=== PATIENT | male | born 1960 | race Caucasian/White ===

== ENCOUNTER 2021-04-28 22:52 | Inpatient (IN) | payer OTHER ==
[~2021-04-28] VITALS: Ht 175.3 cm; Wt 113.4 kg
[~2021-04-28 22:52] MED LIST: HYDACE5 PO; ISOMON30 PO
[2021-04-28 23:33] LABS: BASOPHILS ABSOLUTE AUTO 0.04 K/mm3 (0.00-0.23); BASOPHILS PERCENT AUTO 1 % (0-2); EOSINOPHILS ABSOLUTE AUTO 0.12 K/mm3 (0.00-0.68); EOSINOPHILS PERCENT AUTO 2 % (0-6); Hematocrit 20.6 % (37.0-53.0); IMMATURE GRAN ABSOLUTE AUTO 0.03 K/mm3 (0.00-0.10); IMMATURE GRAN PERCENT AUTO 0 % (0-1); LYMPHOCYTES ABSOLUTE AUTO 1.57 K/mm3 (0.84-5.20); LYMPHOCYTES PERCENT AUTO 23 % (21-46); MONOCYTES ABSOLUTE AUTO 0.54 K/mm3 (0.16-1.47); MONOCYTES PERCENT AUTO 8 % (4-13); Mean Corpuscular HGB 41.9 pg (26.0-34.0); Mean Corpuscular Volume 123 fL (80-100); Mean Platelet Volume 11.5 fL (9.1-12.4); NEUTROPHILS ABSOLUTE AUTO 4.59 K/mm3 (1.96-9.15); NEUTROPHILS PERCENT AUTO 67 % (41-73); Platelet Count 134 K/mm3 (150-400); Red Blood Cell Count 1.67 M/mm3 (4.30-5.90); White Blood Cell Count 6.89 K/mm3 (4.00-11.30)
[2021-04-28 23:51] LABS: International Normalized Ratio 1.65; Prothrombin Time Results 17.3 Sec (9.7-11.5)
[2021-04-29 00:55] LABS: Alanine Aminotransfer (ALT/SGP 42 U/L (12-78); Albumin, Blood 2.3 g/dL (3.4-5.0); Albumin/Globulin Ratio 0.8 (0.8-1.8); Alk Phos 91 U/L (50-136); Anion Gap 12 mmol/L (6-16); Aspartate Aminotrans (AST/SGOT 66 U/L (12-37); Blood Urea Nitrogen 31 mg/dL (8-24); Bun/Creatinine Ratio 27.4 (12.0-20.0); CO2, Blood 22 mmol/L (21-32); Calcium, Blood 8.3 mg/dL (8.5-10.1); Chloride, Blood 106 mmol/L (98-108); Creatinine, Blood 1.13 mg/dL (0.60-1.20); Globulin, Blood 2.9 g/dL (2.2-4.0); Glomerular Filtration Rate >60 (60-); Glucose, Blood 154 mg/dL (70-99); Potassium, Blood 4.7 mmol/L (3.5-5.5); Sodium, Blood 140 mmol/L (136-145); Total Protein, Blood 5.2 g/dL (6.4-8.2)
[2021-04-29 01:14] LABS: SARS-Cov-2 (COVID-19) PCR, MMC NEGATIVE (NEGATIVE)
[2021-04-29] MEDS ORDERED: IBUP200 PO (04:20)
--- NOTE | 2021-04-29 05:48 | NUR ---
PATIENT ARRIVED FROM THE ED, ALERT AND BECAME LETHARGIC AFTER AN 1/2 HOUR THROUGH THE ADMISSION, ABLE TO WAKE TO VERBAL STIMULI AND ANSWER QUESTIONS. ADMISSION COMPLETE AND MEDICATIONS RECONCILED, PATIENT STATES ONLY TAKES ADVIL EVERYDAY. URINAL AT BEDSIDE, PATIENT TRIED X 2 UNABLE TO URINATE RECEIVED NEW ORDERS FOR BLADDER SCAN PRN, AND STRAIGHT CATH IF OVER 450ML RESIDUAL. PATIENT CAME ON 2L NC NOW ON RA AT 100%, PRBC STOPPED RUNNING AT 0530 AND LAB INFORMED TO DRAW H/H AND LACTIC AT 0630. PATIENT ORIENTATED TO ROOM, CALL LIGHT, AND EMERGENCY RESPONSE. PATIENT WAS GIVEN SAFETY INSTRUCTIONS AND VERBALIZED THAT HE WONT GET OUT OF BED WITHOUT USING CALL LIGHT AND WAITING FOR SOMEONE.
[2021-04-29 07:00] LABS: BASOPHILS ABSOLUTE AUTO 0.03 K/mm3 (0.00-0.23); BASOPHILS PERCENT AUTO 0 % (0-2); EOSINOPHILS ABSOLUTE AUTO 0.01 K/mm3 (0.00-0.68); EOSINOPHILS PERCENT AUTO 0 % (0-6); Hemoglobin 7.5 g/dL (13.5-17.5); IMMATURE GRAN ABSOLUTE AUTO 0.03 K/mm3 (0.00-0.10); IMMATURE GRAN PERCENT AUTO 0 % (0-1); LYMPHOCYTES ABSOLUTE AUTO 0.97 K/mm3 (0.84-5.20); LYMPHOCYTES PERCENT AUTO 12 % (21-46); MONOCYTES ABSOLUTE AUTO 0.84 K/mm3 (0.16-1.47); MONOCYTES PERCENT AUTO 10 % (4-13); Mean Platelet Volume 11.5 fL (9.1-12.4); NEUTROPHILS ABSOLUTE AUTO 6.41 K/mm3 (1.96-9.15); NEUTROPHILS PERCENT AUTO 77 % (41-73); Platelet Count 128 K/mm3 (150-400); White Blood Cell Count 8.29 K/mm3 (4.00-11.30)
[2021-04-29 07:20] LABS: Hematocrit 23.4 % (37.0-53.0); Mean Corpuscular HGB 37.9 pg (26.0-34.0); Mean Corpuscular HGB Conc 32.1 g/dL (31.5-36.5); Mean Corpuscular Volume 118 fL (80-100); Red Blood Cell Count 1.98 M/mm3 (4.30-5.90)
[2021-04-29 09:19] LABS: Source, Urine Catheter
[2021-04-29 09:26] LABS: Appearance, Urine Hazy (Clear); Blood, Urine 1+ (Neg); Color, Urine Brown (P-Yellow); Glucose Qualitative, Urine Neg (Neg); Ketones, Urine 2+ (Neg); Leukocyte Esterase, Urine 1+ (Neg); Nitrite, Urine Pos (Neg); Protein, Urine 1+ (Neg); Specific Gravity, Urine 1.025 (1.003-1.022); Urobilinogen, Urine 2+ (Normal)
[2021-04-29 09:49] LABS: Bilirubin, Urine 2+ (Neg)
[2021-04-29 09:51] LABS: Bacteria Few /hpf; Hyaline Casts 25-50 /lpf (0-2); Red Blood Cells, Urine 0-2 /hpf (0-2); Squamous Epithelial Cells Mod /hpf (Few)
[2021-04-29 10:58] LABS: Hemoglobin 7.4 g/dL (13.5-17.5)
[2021-04-29 11:00] LABS: Hematocrit 22.7 % (37.0-53.0)
[2021-04-29 11:50] LABS: PCO2 Arterial 24.7 mmHg (35-45); PO2 Arterial 72.5 mmHg (80-100); pH Blood Arterial 7.32 (7.35-7.45)
--- NOTE | 2021-04-29 14:06 | NUR ---
TO DAY SURGERY VIA SEBAS GRANDAOSTATIN DRIP CONTINUED W/ PT & IVF & PROTONIX STOPPED PER DAY SURGERY RN.
--- NOTE | 2021-04-29 14:12 | NUR ---
PT TRANSFERED TO [facility] VIA GURNY FROM FLOOR. History, Chart, Medications and Allergies reviewed before start of procedure. Lungs clear T/O to Auscultation. Patient confirms NPO status and agrees with scheduled surgery. Pre-Op teaching done. Pt verbalizes understanding.
--- NOTE | 2021-04-29 14:45 | NUR ---
04/29/21 1445 JINNY JARVIS History, Chart, Medications and Allergies reviewed before start of procedure. 3-LEAD EKG REVIEWED WITH PHYSICIAN PRIOR TO START OF PROCEDURE. O2 VIA POM INTACT THROUGHOUT SEDATION/PROCEDURE. MONITOR INTACT WITH CONTINUOUS PULSE OXIMETRY AND INTERMITTENT BP.MAC WITH DR. NIEVES.
--- NOTE | 2021-04-29 15:30 | NUR ---
RETURN FROM PROCEDURE PT CONFUSED. AGIATED. MUMBLING. ABLE TO ANSWER SIMPLE ?'s. DENIES PAIN, N/V, SOB. LUNGS CLEAR. TELE REAPPLIED: SINUS TACH @ 105 PER JUDGE CLERK. ABD SOFT, NONTENDER. H&H DRAWN & SENT TO LAB. VSS. PT CANNOT KEEP EYES OPEN BUT HALWAY OPENS THEM. PUPIL CHECK SHOWS EVEN & REACTIVE. RESTLESS IN BED. BED ALARM ON. CALL LIGHT GIVEN.
--- NOTE | 2021-04-29 15:43 | NUR ---
LATE ENTRY 1503 PT TRANSFERED TO [facility]. WHEN PT AWOKE HE WAS PHYSCIALY AND VERBALLY AGITATED. PT WAS SQUIRMING, TRYING TO GET OUT OF GURNY AND FLAILING ARMS. PT STATED HE WAS NOT IN PAIN. DR. NIEVES ORDERED 0.25 MG TO 0.5 MG TO MAX OF 2 MG ATIVAN FOR AGITATION.
--- NOTE | 2021-04-29 15:46 | NUR ---
LATE ENTRY 1519 PT MUCH CALMER AFTER 0.5 MG ATIVAN IV. PT A&O X 3. PT STILL AND NO LONGER SQUIMING. PT SITTING COMFORTABLE IN SHAW'S POSTION DRINKING WATER.
[2021-04-29 16:03] LABS: Hemoglobin 6.8 g/dL (13.5-17.5)
[2021-04-29 16:10] LABS: Hematocrit 21.2 % (37.0-53.0)
--- NOTE | 2021-04-29 17:00 | NUR ---
CONTACT W/ FAMILY PABLO, SISTER, CALLED & WAS UPDATED ON CONDITION & PROCEDURES COMPLETED. SISTER REPORTS PT IS A HEAVY EVERDAY DRINKER, FROM MORNING TO EVENINGS. REPORTS HIM DRINKING HARD CIDER.
--- NOTE | 2021-04-29 17:10 | NUR ---
CHANGE IN CONDITION PT CONTINUES TO BE CONFUSED. MOTTLED NOTED TO BLE BELOW KNEES. ABD MORE FIRM/DISTENDED. DR DE LUNA CALLED W/ THIS UPDATE & H&H RESULTS. 1 UNIT PRBC ORDERED. ENGINEERING OPERATOR CALLS DR STREET SHORTLY AFTER & NEW ORDERS RECEIVED. CURRENTLY PT TO CT SCAN VIA [facility].
[2021-04-29 17:12] LABS: BASOPHILS ABSOLUTE AUTO 0.04 K/mm3 (0.00-0.23); BASOPHILS PERCENT AUTO 0 % (0-2); EOSINOPHILS ABSOLUTE AUTO 0.01 K/mm3 (0.00-0.68); EOSINOPHILS PERCENT AUTO 0 % (0-6); Hemoglobin 7.2 g/dL (13.5-17.5); IMMATURE GRAN ABSOLUTE AUTO 0.06 K/mm3 (0.00-0.10); IMMATURE GRAN PERCENT AUTO 1 % (0-1); LYMPHOCYTES ABSOLUTE AUTO 1.41 K/mm3 (0.84-5.20); LYMPHOCYTES PERCENT AUTO 12 % (21-46); MONOCYTES ABSOLUTE AUTO 1.28 K/mm3 (0.16-1.47); MONOCYTES PERCENT AUTO 11 % (4-13); Mean Platelet Volume 11.6 fL (9.1-12.4); NEUTROPHILS ABSOLUTE AUTO 8.86 K/mm3 (1.96-9.15); NEUTROPHILS PERCENT AUTO 76 % (41-73); Platelet Count 135 K/mm3 (150-400); White Blood Cell Count 11.66 K/mm3 (4.00-11.30)
[2021-04-29 17:19] LABS: Hematocrit 22.6 % (37.0-53.0); Mean Corpuscular HGB 39.8 pg (26.0-34.0); Mean Corpuscular HGB Conc 31.9 g/dL (31.5-36.5); Mean Corpuscular Volume 125 fL (80-100); Red Blood Cell Count 1.81 M/mm3 (4.30-5.90)
[2021-04-29 17:28] LABS: International Normalized Ratio 2.06; Prothrombin Time Results 21.4 Sec (9.7-11.5)
[2021-04-29 18:10] LABS: Bun/Creatinine Ratio 29.4 (12.0-20.0); Calcium, Blood 7.9 mg/dL (8.5-10.1); Creatinine, Blood 1.63 mg/dL (0.60-1.20)
[2021-04-29 18:43] LABS: Potassium, Blood 6.3 mmol/L (3.5-5.5)
--- NOTE | 2021-04-29 19:00 | NUR ---
ESCALATION/RESTRAINTS THIS RN WAS CALLED TO ROOM AT 1820 DUE TO PT THRASHING, YELLING, PULLING AT LINES, & ATTEMPTING TO GET OUT OF BED. ORIENTED TO NOTHING. CALLED, IV ATIVAN GIVEN & TUFF CUFF RESTRAINTS APPLIED. PT CONTINUES TO THRASH & FIGHT RESTRAINTS. PRECEDEX INITIATED.
--- NOTE | 2021-04-29 20:09 | NUR ---
SISTER PABLO'S CONTACT NUMBER [phone]
[2021-04-29 20:51] LABS: Hemoglobin 8.1 g/dL (13.5-17.5)
[2021-04-29 20:56] LABS: Hematocrit 26.4 % (37.0-53.0)
[2021-04-29 21:11] LABS: PCO2 Arterial 31.2 mmHg (35-45); PO2 Arterial 102 mmHg (80-100); pH Blood Arterial 6.96 (7.35-7.45)
[2021-04-29 21:30] LABS: Albumin, Blood 2.3 g/dL (3.4-5.0); Albumin/Globulin Ratio 0.8 (0.8-1.8); Bilirubin, Total 9.6 mg/dL (0.1-1.0); Bun/Creatinine Ratio 23.9 (12.0-20.0); Calcium, Blood 8.2 mg/dL (8.5-10.1); Creatinine, Blood 2.05 mg/dL (0.60-1.20); Potassium, Blood 5.5 mmol/L (3.5-5.5); Total Protein, Blood 5.3 g/dL (6.4-8.2)
[2021-04-29 23:43] LABS: PCO2 Arterial 32.2 mmHg (35-45); PO2 Arterial 105 mmHg (80-100); pH Blood Arterial 6.93 (7.35-7.45)
[2021-04-29 23:50] LABS: Hemoglobin 7.4 g/dL (13.5-17.5)
[2021-04-29 23:51] LABS: Hematocrit 24.7 % (37.0-53.0)
[2021-04-30 00:25] LABS: Bun/Creatinine Ratio 20.9 (12.0-20.0); Calcium, Blood 8.1 mg/dL (8.5-10.1); Creatinine, Blood 2.35 mg/dL (0.60-1.20); Potassium, Blood 5.9 mmol/L (3.5-5.5)
--- NOTE | 2021-04-30 02:20 | NUR ---
- assumption of care - 1900 - rn entered room for shift report, 5 nurses in room placing patient in tough cuff restraints, started on precedex gtt, blood infusing. pt resp status less than desirable. rr 30-40. bp 132/76. pending labs. md came to bedside, ordered more labs, ngt placement, rectal tube placement, iv abx. 2039 - pm labs show worsening condition of patient. co2 critically low at 9, abg critical results. pt now foaming at the mouth. cxr confirmed placement of ngt for hospital medical biller (lactulose). did supervisor newspaper deliveries to suction briefly per md reqest - ~20ml out of caden blood. 2100 - abg: hco3 7.4 to 7.1, ph 6.96 to 6.93. due to abg, bicarb amp given and bicarb gtt started. decided to hold off intubation at this time. 2300 - worsened labs, md speaking closely with family in regards to plan of care and prognosis. after discussion, family decided to make patient dnr/comfort care due to poor prognosis per md. bp rapidly dropping 70's/40's. 0100 - family came to bedside to say goodbye to patient. pt kept comfortable at this time. will continue to monitor.
[2021-05-01 10:09] LABS: HBSAG SCREEN Negative (Negative); HEP B CORE AB, TOT Negative (Negative); HEP C VIRUS AB <0.1 (0.0-0.9)
== END 2021-04-30 09:16 | DRG 432 ==
LOC: ER 22:52 → PCU 04-29 01:39
PROVIDERS: Internal Medicine; Internal Medicine Gastroenterology; Student in an Organized Health Care Education/Training Program; ADMIT Hospitalist
PROC: 06L38CZ Occlusion of Esophageal Vein with Extraluminal Device, Via Natural or Artificial Opening Endoscopic (ICD-10-PCS; 2021-04-29)
PROC: 30233N1 Transfusion of Nonautologous Red Blood Cells into Peripheral Vein, Percutaneous Approach (ICD-10-PCS; principal; 2021-04-29 13:00)
DX: K70.30 Alcoholic cirrhosis of liver without ascites (principal); K76.7 Hepatorenal syndrome; I85.11 Secondary esophageal varices with bleeding; D62 Acute posthemorrhagic anemia; Z66 Do not resuscitate; Z51.5 Encounter for palliative care; N17.9 Acute kidney failure, unspecified; D68.9 Coagulation defect, unspecified; E87.2 Acidosis; K76.6 Portal hypertension; F10.239 Alcohol dependence with withdrawal, unspecified; K70.40 Alcoholic hepatic failure without coma; Z20.822 Contact with and (suspected) exposure to COVID-19; K70.10 Alcoholic hepatitis without ascites; R57.1 Hypovolemic shock; R57.8 Other shock; Z78.1 Physical restraint status; K31.89 Other diseases of stomach and duodenum; M19.90 Unspecified osteoarthritis, unspecified site; D69.6 Thrombocytopenia, unspecified; F17.210 Nicotine dependence, cigarettes, uncomplicated; Z88.5 Allergy status to narcotic agent
CPT/HCPCS: 36415; 36430; 36600; 51702; 71045; 74177; 76705; 80048; 80053; 81001; 82140; 82803; 82947; 83605; 84145; 85014; 85018; 85025; 85610; 85730; 86704; 86708; 86803; 86850; 86900; 86901; 86920; 86923; 87040; 87086; 87340; 93005; 93010; 93306; 94762; 96365; 96375; 96376; 99285-25; A9270; C1751; C9113; J0696; J2060; J2354; J2405; J2543; J2704; J2765; J3010; J3411; J3475; J7030; J7042; J7050; J7070; J7120; P9016; Q9967; U0004